=== PATIENT | female | born 1965 | race Caucasian/White ===

== ENCOUNTER 2024-09-22 09:20 | Outpatient (CLI) | payer OTHER, SELFPAY ==
--- NOTE | ~2024-09-22 | MR_ITS ---
EXAMINATION: MR elbow RT wo con DATE: 09/22/2024 10:05 INDICATION: Right elbow pain TECHNIQUE: Magnetic resonance imaging (MRI) of the right elbow was performed without intravenous cont rast. Sequences included coronal, axial, and sagittal PD-weighted FS FSE and coronal, axial, and sagi ttal PD-weighted FSE. COMPARISON: None FINDINGS: Osseous/other: Normal alignment. Normal marrow signal with no marrow edema, fracture, osteochondral lesion or abnor mal marrow replacing process. Mild with nonuniform joint space narrowing. Partial-thickness cartilage loss. Tiny marginal osteophytes consistent with mild osteoarthritis at the right elbow. Tendons: Triceps, biceps brachii and brachialis tendons are normal. Mild tendinopathy without tear at the med ial and lateral epicondylar origins of the common flexor and extensor tendon wads respectively. Ligaments: The medial and lateral collateral ligament complexes are normal. Cubital tunnel: There is fusiform thickening and mild increased signal of 3 cm segment of ulnar nerve beginning at an d extending proximally from the cubital tunnel with only minimal surrounding fat which raises suspici on for ulnar neuropathy potentially related to impingement. There is mild subcutaneous edema overlyin g the medial epicondyle. Fluid: Physiologic amount of fluid the elbow joint. IMPRESSION: 1. Mild fusiform thickening and increased signal of the ulnar nerve. 3 cm proximally from the cubital tunnel where there is a paucity of surrounding fat raising concern for cubital tunnel syndrome with ulnar neuropathy secondary to impingement. Correlate clinically for signs and symptoms of ulnar neuro brandin. 2. Mild tendinopathy without discrete tear at the medial lateral epicondylar origins of the common fl exor and common extensor tendon wads respectively. 3. 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 Reviewed, dictated and finalized at location A. IMPRESSION: 1. Mild fusiform thickening and increased signal of the ulnar nerve. 3 cm proxi odilia from the cubital tunnel where there is a paucity of surrounding fat pablito barajas concern for cubital tunnel syndrome with ulnar neuropathy secondary to impin gement. Correlate clinically for signs and symptoms of ulnar neuropathy. 2. Mild tendinopathy without discrete tear at the medial lateral epicondylar or igins of the common flexor and common extensor tendon wads respectively. 3. 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
== END 2024-09-22 09:21 | disposition home or self-care (01) ==
LOC: MICIMG 09:21
PROVIDERS: PCP Pediatrics; Visit Provider Pediatrics
DX: M25.421 Effusion, right elbow (principal); M19.021 Primary osteoarthritis, right elbow; M67.823 Other specified disorders of tendon, right elbow
CPT/HCPCS: 73221